=== PATIENT | female | born 1995 | race Caucasian/White ===

== ENCOUNTER 2017-06-21 20:35 | Emergency (ER) | payer OTHER ==
[2017-06-21 20:51] VITALS: BP 137/80; PULSE 107; RESP 16; TEMP 99.4; O2SAT 99
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
[2017-06-22 01:13] VITALS: BP 134/76; PULSE 98; RESP 16; TEMP 98.5; O2SAT 98
[2017-06-22] MEDS ORDERED: LO LTAB PO (01:14)
[2017-06-22] MEDS ORDERED: ORPHENADRINE INJ 60 MG/2 ML AMP IM ONE (01:30)
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
[2017-06-22] MEDS ORDERED: NAPR375T4 PO (02:27)
[2017-06-22] MEDS ORDERED: CYCL10TA PO (02:27)
== END 2017-06-22 03:24 | disposition home or self-care (01) ==
LOC: NEPE 20:35
DX: S20.212A Contusion of left front wall of thorax, initial encounter (principal); S80.12XA Contusion of left lower leg, initial encounter; S80.11XA Contusion of right lower leg, initial encounter; V49.50XA Passenger injured in collision with unspecified motor vehicles in traffic accident, initial encounter
CPT/HCPCS: 71101; 96372; 99284; J2360